=== PATIENT | female | born 1980 | race Caucasian/White ===

== ENCOUNTER 2016-08-13 09:56 | Emergency (ER) | payer OTHER ==
[~2016-08-13 09:56] MED LIST: ACETAMINOPHEN; AMOXICILLIN PO; ANTIVERT PO; BACTRIM DS TABL1 TA1 PO; FAMOTIDINE PO; IBUPROFEN800 MG PO; MACROBID 100 M100 MG PO; NEO-SYNEPHRINE15 M3; NEXIUM20 MG PO; NO MEDICATIONS; PHENERGAN DM1 ML PO; PRENATAL1 TA1 PO; PRILOSEC20 MG PO; RANITIDINE HCL150 M1; ROBITUSSIN A-C S5 ML PO; SUDAFED30 M1 PO; ULTRAM PO; VOLTAREN75 MG PO; ZANTAC; ZANTAC150 M1 PO; ZANTAC150 MG; ZANTAC150 MG PO; ZITHROMAX PO; ZITHROMAX1 G/PKT PO; ZOFRAN ODT4 MG PO
== END 2016-08-13 10:13 | disposition home or self-care (01) ==
LOC: SED 09:56
DX: K02.9 Dental caries, unspecified (principal); K21.9 Gastro-esophageal reflux disease without esophagitis; F17.210 Nicotine dependence, cigarettes, uncomplicated
CPT/HCPCS: 99282